=== PATIENT | female | born 1990 | race Caucasian/White ===

== ENCOUNTER 2017-01-28 08:20 | Emergency (ER) | payer MEDICAID | END 2017-01-28 10:00 | disposition home or self-care (01) | DX: S82.141A Displaced bicondylar fracture of right tibia, initial encounter for closed fracture (principal); R56.9 Unspecified convulsions; S22.31XA Fracture of one rib, right side, initial encounter for closed fracture; S20.319A Abrasion of unspecified front wall of thorax, initial encounter; F17.210 Nicotine dependence, cigarettes, uncomplicated; V49.9XXA Car occupant (driver) (passenger) injured in unspecified traffic accident, initial encounter ==